=== PATIENT | female | born 1970 | race Caucasian/White ===

== ENCOUNTER 2019-01-19 16:20 | Emergency (ER) | payer MEDICAID ==
[~2019-01-19] VITALS: Ht 162.6 cm; Wt 76.6 kg
[~2019-01-19 16:20] MED LIST: LEVO25TA9 PO; RISPC375 IM
[2019-01-19] MEDS ORDERED: HydrOXYzine HCL 50 MG TABLET PO ONE (17:15)
[2019-01-19 17:21] LABS: BASOPHILS % (AUTO) 0.6 % (0.0-2.0); EOSINOPHILS % (AUTO) 1.3 % (1.0-6.0); HEMOGLOBIN 12.4 g/dL (12.0-16.0); LYMPHOCYTES # (AUTO) 3.3 K/uL (1.0-4.8); LYMPHOCYTES % (AUTO) 37.2 % (22.0-44.0); MEAN CORPUSCULAR HEMOGLOBIN 28.8 pg (26.0-34.0); MEAN CORPUSCULAR HGB CONC 32.7 G/dL (31.0-37.0); MEAN CORPUSCULAR VOLUME 88 fL (80-100); MONOCYTES # (AUTO) 0.5 K/uL (0.1-1.0); MONOCYTES % (AUTO) 5.4 % (2.0-9.0); NEUTROPHILS % (AUTO) 55.5 % (40.0-70.0); PLATELET COUNT (AUTO) 289 K/uL (150-450); RED BLOOD CELL COUNT(AUTO) 4.32 MIL/uL (4.00-5.20); RED CELL DISTRIBUTION WIDTH 14.1 % (11.5-14.5)
[2019-01-19 17:24] LABS: APPEARANCE,URINE CLEAR (CLEAR); BILIRUBIN,URINE NEGATIVE (NEGATIVE); GLUCOSE, URINE (UA) NEGATIVE (NEGATIVE); KETONES,URINE NEGATIVE (NEGATIVE); LEUKOCYTE ESTERASE ,URINE NEGATIVE (NEGATIVE); NITRATE,URINE NEGATIVE (NEGATIVE); OCCULT BLOOD,URINE LARGE (NEGATIVE); PH,URINE 5.5 (5.0-8.0); PROTEIN,URINE NEGATIVE (NEGATIVE); UROBILINOGEN,URINE 0.2 mg/dL (<=1.0)
[2019-01-19 17:32] LABS: AMPHET/METH SCREEN,URINE NEGATIVE (NEGATIVE); BARBITURATE SCREEN, URINE NEGATIVE (NEGATIVE); BENZODIAZEPINES SCREEN,URINE NEGATIVE (NEGATIVE); CANNABINOID SCREEN,URINE NEGATIVE (NEGATIVE); COCAINE SCREEN,URINE NEGATIVE (NEGATIVE); METHADONE SCREEN, URINE NEGATIVE (NEGATIVE); OPIATE SCREEN,URINE NEGATIVE (NEGATIVE)
[2019-01-19 17:33] LABS: PHENCYCLIDINE SCREEN,URINE NEGATIVE (NEGATIVE)
[2019-01-19 17:38] LABS: BACTERIA,URINE None Seen /HPF (None Seen); MUCUS,URINE Few LPF (None Seen); SQUAMOUS EPITHELIAL CELL,UR Few /LPF (None Seen); WBC,URINE None Seen /HPF (0-5)
[2019-01-19 17:44] LABS: ALANINE AMINOTRANSFERASE 26 U/L (12-78); ALBUMIN 3.6 g/dL (3.4-5.0); ALKALINE PHOSPHATASE 68 U/L (46-116); ANION GAP 5 mmol/L (8-16); ASPARTATE AMINOTRANSFERASE 17 U/L (15-37); BILIRUBIN,TOTAL 0.3 mg/dL (0.1-1.0); CALCIUM, TOTAL 9.5 mg/dL (8.8-10.5); CARBON DIOXIDE 29 mmol/L (22-29); CHLORIDE 105 mmol/L (98-107); CREATININE 0.87 mg/dL (0.60-1.30); GLOMERULAR FILTR. RATE CALC > 60 mL/min (>60); GLUCOSE,RANDOM 105 mg/dL (70-110); POTASSIUM 4.1 mmol/L (3.5-5.1); SODIUM SERUM 139 mmol/L (136-145); THYROID STIMULATING HORMONE 5.21 uIU/mL (0.36-3.74); TOTAL PROTEIN, SERUM 7.6 g/dL (6.4-8.2); UREA NITROGEN, BLOOD 16 mg/dL (7-18)
[2019-01-19 18:43] VITALS: BP 108/65
== END 2019-01-19 18:44 | disposition home or self-care (01) ==
LOC: EMS 17:17
DX: F41.9 Anxiety disorder, unspecified (principal); E03.9 Hypothyroidism, unspecified; R94.6 Abnormal results of thyroid function studies; F20.9 Schizophrenia, unspecified; Z79.899 Other long term (current) drug therapy
CPT/HCPCS: 36415; 80053; 80307; 81001; 84443; 84703; 85025; 93005; 99284; G0480

== ENCOUNTER 2020-09-11 22:21 | Emergency (ER) | payer MEDICAID ==
[~2020-09-11] VITALS: Ht 167.6 cm; Wt 77.3 kg
[2020-09-11] MEDS ORDERED: ONDANSETRON HCL 4 MG/2 ML VIAL IVP ONE (22:30)
[2020-09-11] MEDS ORDERED: MORPHINE SULFATE 2 MG/ML SYRINGE IVP ONE (22:30)
[2020-09-11] MEDS ORDERED: SODIUM CHLORIDE 0.9% 1,000 ML IV ONE (22:30)
[2020-09-11 22:45] LABS: BASOPHILS % (AUTO) 0.4 % (0.0-2.0); EOSINOPHILS % (AUTO) 0.1 % (1.0-6.0); HEMATOCRIT 39.7 % (36-46); HEMOGLOBIN 13.1 g/dL (12.0-16.0); LYMPHOCYTES # (AUTO) 1.9 K/uL (1.0-4.8); LYMPHOCYTES % (AUTO) 15.3 % (22.0-44.0); MEAN CORPUSCULAR HEMOGLOBIN 28.1 pg (26.0-34.0); MEAN CORPUSCULAR HGB CONC 32.9 G/dL (31.0-37.0); MEAN CORPUSCULAR VOLUME 85 fL (80-100); MONOCYTES # (AUTO) 0.5 K/uL (0.1-1.0); MONOCYTES % (AUTO) 4.1 % (2.0-9.0); NEUTROPHILS # (AUTO) 10.2 K/uL (1.8-7.7); NEUTROPHILS % (AUTO) 80.1 % (40.0-70.0); PLATELET COUNT (AUTO) 275 K/uL (150-450); RED BLOOD CELL COUNT(AUTO) 4.66 MIL/uL (4.00-5.20); RED CELL DISTRIBUTION WIDTH 15.3 % (11.5-14.5)
[2020-09-11] MEDS ORDERED: SODIUM CHLORIDE 0.9% 100 ML ONE (22:55)
[2020-09-11] MEDS ORDERED: IOHEXOL 350 MG/ML 100 ML VIAL ONE (22:55)
[2020-09-11 22:58] LABS: ANION GAP 9 mmol/L (8-16); CALCIUM, TOTAL 9.1 mg/dL (8.8-10.5); CARBON DIOXIDE 29 mmol/L (22-29); CHLORIDE 106 mmol/L (98-107); CREATININE 0.84 mg/dL (0.60-1.30); GLOMERULAR FILTR. RATE CALC > 60 mL/min (>60); GLUCOSE,RANDOM 115 mg/dL (70-110); POTASSIUM 4.1 mmol/L (3.5-5.1); SODIUM SERUM 144 mmol/L (136-145); UREA NITROGEN, BLOOD 14 mg/dL (7-18)
[2020-09-11 23:09] LABS: ALANINE AMINOTRANSFERASE 82 U/L (12-78); ALBUMIN 4.1 g/dL (3.4-5.0); ALKALINE PHOSPHATASE 69 U/L (46-116); ASPARTATE AMINOTRANSFERASE 86 U/L (15-37); BILIRUBIN,TOTAL 0.7 mg/dL (0.1-1.0); HCG,QUANTITATIVE 1 mIU/mL (0-6); TOTAL PROTEIN, SERUM 7.5 g/dL (6.4-8.2)
[2020-09-11 23:19] LABS: LACTIC ACID 1.2 mmol/L (0.4-2.0)
[2020-09-12 00:43] LABS: COVID AG,FIA SOURCE NASOPHARYNGEAL
[2020-09-12] MEDS ORDERED: HYDROmorphone 2 MG/ML VIAL IVP ONE (00:45)
[2020-09-12] MEDS ORDERED: ONDANSETRON HCL 4 MG/2 ML VIAL IVP ONE (00:45)
[2020-09-12 01:30] VITALS: BP 100/63
[2020-09-12] MEDS ORDERED: PERTUSS(ACELL),DIPH,TET VAC/PF 0.5 ML SYRINGE IM. ONE (02:00)
== END 2020-09-12 03:00 | disposition short-term general hospital (02) ==
LOC: EMS 22:21
DX: S01.512A Laceration without foreign body of oral cavity, initial encounter (principal); S22.068A Other fracture of T7-T8 thoracic vertebra, initial encounter for closed fracture; Z20.822 Contact with and (suspected) exposure to COVID-19; W19.XXXA Unspecified fall, initial encounter; Y93.89 Activity, other specified; Y92.89 Other specified places as the place of occurrence of the external cause; Y99.8 Other external cause status
CPT/HCPCS: 70450; 71045; 71260; 72125; 72170; 74177; 80053; 83605; 84702; 85025; 87426; 90471; 90715; 96374; 96375 ×2; 96376; 99291; A9575; J1170; J2270; J2405 ×2; J7030; J7050; 72193; 74160

== ENCOUNTER 2023-09-05 10:44 | Inpatient (IN) | payer MEDICAID ==
[~2023-09-05] VITALS: Ht 157.5 cm; Wt 73.0 kg
[2023-09-05 11:54] LABS: BASOPHILS % (AUTO) 0.6 % (0.0-2.0); EOSINOPHILS % (AUTO) 1.2 % (1.0-6.0); HEMATOCRIT 38.6 % (36-46); LYMPHOCYTES # (AUTO) 2.4 K/uL (1.0-4.8); LYMPHOCYTES % (AUTO) 30.2 % (22.0-44.0); MEAN CORPUSCULAR HEMOGLOBIN 29.1 pg (26.0-34.0); MEAN CORPUSCULAR HGB CONC 33.7 G/dL (31.0-37.0); MEAN CORPUSCULAR VOLUME 86 fL (80-100); MONOCYTES # (AUTO) 0.3 K/uL (0.1-1.0); MONOCYTES % (AUTO) 4.2 % (2.0-9.0); NEUTROPHILS # (AUTO) 5.2 K/uL (1.8-7.7); NEUTROPHILS % (AUTO) 63.8 % (40.0-70.0); PLATELET COUNT (AUTO) 273 K/uL (150-450); RED BLOOD CELL COUNT(AUTO) 4.47 MIL/uL (4.00-5.20); RED CELL DISTRIBUTION WIDTH 13.6 % (11.5-14.5); WHITE BLOOD COUNT (AUTO) 8.1 K/uL (4.5-11.0)
[2023-09-05 12:26] LABS: COVID AG,FIA SOURCE NASAL SWAB
[2023-09-05 12:36] LABS: ANION GAP 7 mmol/L (8-16); CALCIUM, TOTAL 9.2 mg/dL (8.8-10.5); CARBON DIOXIDE 28 mmol/L (22-29); CHLORIDE 107 mmol/L (98-107); CREATININE 0.82 mg/dL (0.60-1.30); GLOMERULAR FILTR. RATE CALC > 60 mL/min (>60); GLUCOSE,RANDOM 107 mg/dL (70-110); POTASSIUM 5.1 mmol/L (3.5-5.1); SODIUM SERUM 142 mmol/L (136-145); UREA NITROGEN, BLOOD 21 mg/dL (7-18)
[2023-09-05 12:42] LABS: ALANINE AMINOTRANSFERASE 35 U/L (12-78); ALBUMIN 3.8 g/dL (3.4-5.0); ALCOHOL, BLOOD (SERUM) < 3 mg/dL (0-10); ALKALINE PHOSPHATASE 83 U/L (46-116); ASPARTATE AMINOTRANSFERASE 20 U/L (15-37); BILIRUBIN,TOTAL 0.5 mg/dL (0.1-1.0)
[2023-09-05 12:46] LABS: SARS-COV2 (COVID) ANTIGEN,FIA Negative (Negative)
[2023-09-05] MEDS ORDERED: HALOPERIDOL 5 MG TABLET PO PRN (14:30)
[2023-09-05] MEDS ORDERED: LORazepam 2 MG TABLET PO PRN (14:30)
[2023-09-05] MEDS ORDERED: ZOLPIDEM TARTRATE 10 MG TABLET PO PRN (14:30)
[2023-09-05 14:32] LABS: PH,URINE DRUG SCREEN 5.5 (5.0-8.0)
[2023-09-05 14:39] LABS: AMPHET/METH SCREEN,URINE NEGATIVE (NEGATIVE); BARBITURATE SCREEN, URINE NEGATIVE (NEGATIVE); BENZODIAZEPINES SCREEN,URINE NEGATIVE (NEGATIVE); CANNABINOID SCREEN,URINE NEGATIVE (NEGATIVE); COCAINE SCREEN,URINE NEGATIVE (NEGATIVE); METHADONE SCREEN, URINE NEGATIVE (NEGATIVE); OPIATE SCREEN,URINE NEGATIVE (NEGATIVE); PHENCYCLIDINE SCREEN,URINE NEGATIVE (NEGATIVE)
[2023-09-05 14:51] LABS: ALCOHOL, URINE DRUG SCREEN NEGATIVE (NEGATIVE)
[2023-09-06] MEDS ORDERED: PETROLATUM,WHITE 28 GM JELLY TP PRN (06:00)
[2023-09-06] MEDS ORDERED: LOPERAMIDE HCL 2 MG CAPSULE PO PRN (06:00)
[2023-09-06] MEDS ORDERED: MAGNESIUM HYDROXIDE SUSPENSION 30 ML UDCUP PO PRN (06:00)
[2023-09-06] MEDS ORDERED: MAG HYDROX/ALUMINUM HYD/SIMETH ES 30 ML SUSPENSION UDCUP PO PRN (06:00)
[2023-09-06] MEDS ORDERED: ONDANSETRON HCL 4 MG TABLET PO PRN (06:00)
[2023-09-06] MEDS ORDERED: BACITRACIN 28 GM OINTMENT TP PRN (06:00)
[2023-09-06] MEDS ORDERED: ALBUTEROL SULFATE HFA 90 MCG/PUFF 8 GM INHALER IH PRN (06:00)
[2023-09-06] MEDS ORDERED: IBUPROFEN 600 MG TABLET PO PRN (06:00)
[2023-09-06] MEDS ORDERED: DOCUSATE SODIUM 100 MG CAPSULE PO PRN (06:00)
[2023-09-06] MEDS ORDERED: ACETAMINOPHEN 325 MG TABLET PO PRN (06:00)
[2023-09-06] MEDS ORDERED: CloNIDine HCL 0.1 MG TABLET PO PRN (06:00)
[2023-09-06] MEDS ORDERED: BENZOCAINE/MENTHOL LOZENGE PO PRN (06:00)
[2023-09-06] MEDS ORDERED: OMEPRAZOLE 20 MG CAPSULE PO PRN (06:00)
[2023-09-06] MEDS: LEVOTHYROXINE SODIUM 25 MCG TABLET PO SCH (06:17)
[2023-09-06 08:18] VITALS: BP 115/68; PULSE 80; RESP 16; TEMP 97.9; O2SAT 99
[2023-09-06] MEDS: RisperiDONE 2 MG TABLET PO SCH (13:33)
[2023-09-06 20:04] VITALS: BP 102/60; PULSE 112; RESP 18; TEMP 97.9; O2SAT 98
[2023-09-07 08:20] VITALS: BP 116/70; PULSE 92; RESP 18; TEMP 97.9; O2SAT 100
[2023-09-07 20:39] VITALS: BP 105/72; PULSE 87; RESP 19; TEMP 98.1; O2SAT 100
[2023-09-08 08:18] VITALS: BP 116/69; PULSE 74; RESP 16; TEMP 98; O2SAT 97
[2023-09-08 21:07] VITALS: BP 110/56; PULSE 104; RESP 18; TEMP 97; O2SAT 100
[2023-09-09 08:16] VITALS: BP 123/84; PULSE 86; RESP 16; TEMP 97.9; O2SAT 99
[2023-09-09] MEDS: RisperiDONE MICROSPHERES 50 MG/2 ML SYRINGE IM SCH (17:11)
[2023-09-09 21:20] VITALS: BP 115/79; PULSE 96; RESP 17; TEMP 97.5; O2SAT 100
[2023-09-10 08:13] VITALS: BP 101/68; PULSE 100; RESP 16; TEMP 98; O2SAT 99
[2023-09-10 20:34] VITALS: BP 106/62; PULSE 88; RESP 16; TEMP 97.7; O2SAT 99
[2023-09-11 08:21] VITALS: BP 109/70; PULSE 90; RESP 18; TEMP 98.3; O2SAT 100
== END 2023-09-11 16:59 | disposition home or self-care (01) | DRG 750 ==
LOC: EMS 10:44 → B3A 16:09
PROVIDERS: ADMIT Psychiatry & Neurology Psychiatry; ATTEND Psychiatry & Neurology Psychiatry
DX: F20.9 Schizophrenia, unspecified (principal); Z91.148 Patient's other noncompliance with medication regimen for other reason; E03.9 Hypothyroidism, unspecified; F32.A Depression, unspecified; F41.9 Anxiety disorder, unspecified; Z20.822 Contact with and (suspected) exposure to COVID-19; G47.00 Insomnia, unspecified; K59.00 Constipation, unspecified; Z79.899 Other long term (current) drug therapy
CPT/HCPCS: 80053; 80307; 84703; 85025; G0480; J2794

== ENCOUNTER 2024-07-17 13:29 | Inpatient (IN) | payer MEDICAID ==
[~2024-07-17] VITALS: Ht 157.5 cm; Wt 87.0 kg
[~2024-07-17 13:29] MED LIST changes: -RISPC375 IM
[2024-07-17] MEDS ORDERED: ZOLPIDEM TARTRATE 10 MG TABLET PO PRN (14:00)
[2024-07-17] MEDS ORDERED: LORazepam 2 MG TABLET PO PRN (14:00)
[2024-07-17] MEDS ORDERED: HALOPERIDOL 5 MG TABLET PO PRN (14:00)
[2024-07-17 14:19] LABS: BASOPHILS % (AUTO) 0.8 % (0.0-2.0); EOSINOPHILS % (AUTO) 1.5 % (1.0-6.0); HEMATOCRIT 38.6 % (36-46); HEMOGLOBIN 12.9 g/dL (12.0-16.0); LYMPHOCYTES # (AUTO) 3.3 K/uL (1.0-4.8); LYMPHOCYTES % (AUTO) 37.2 % (22.0-44.0); MEAN CORPUSCULAR HEMOGLOBIN 28.6 pg (26.0-34.0); MEAN CORPUSCULAR HGB CONC 33.5 G/dL (31.0-37.0); MEAN CORPUSCULAR VOLUME 85 fL (80-100); MONOCYTES # (AUTO) 0.3 K/uL (0.1-1.0); MONOCYTES % (AUTO) 3.7 % (2.0-9.0); NEUTROPHILS % (AUTO) 56.8 % (40.0-70.0); PLATELET COUNT (AUTO) 276 K/uL (150-450); RED BLOOD CELL COUNT(AUTO) 4.53 MIL/uL (4.00-5.20); RED CELL DISTRIBUTION WIDTH 14.4 % (11.5-14.5); WHITE BLOOD COUNT (AUTO) 8.8 K/uL (4.5-11.0)
[2024-07-17 14:37] LABS: ALCOHOL, BLOOD (SERUM) < 3 mg/dL (0-10)
[2024-07-17 14:40] LABS: COVID AG,FIA SOURCE NPH
[2024-07-17 14:43] LABS: CALCIUM, TOTAL 9.7 mg/dL (8.8-10.5); CARBON DIOXIDE 31 mmol/L (22-29); CREATININE 0.81 mg/dL (0.60-1.30); GLOMERULAR FILTR. RATE CALC > 60 mL/min (>60); GLUCOSE,RANDOM 137 mg/dL (70-110); THYROID STIMULATING HORMONE 46.08 uIU/mL (0.36-3.74); UREA NITROGEN, BLOOD 15 mg/dL (7-18)
[2024-07-17 15:08] LABS: SARS-COV2 (COVID) ANTIGEN,FIA Negative (Negative)
[2024-07-17 15:30] LABS: ANION GAP 5 mmol/L (8-16); CHLORIDE 105 mmol/L (98-107); POTASSIUM 4.5 mmol/L (3.5-5.1); SODIUM SERUM 141 mmol/L (136-145)
[2024-07-17] MEDS: LEVOTHYROXINE SODIUM 50 MCG TABLET PO ONE (16:06)
[2024-07-17 21:25] LABS: APPEARANCE,URINE CLEAR (CLEAR); BILIRUBIN,URINE NEGATIVE (NEGATIVE); COLOR,URINE COLORLESS (YELLOW); GLUCOSE, URINE (UA) NEGATIVE (NEGATIVE); KETONES,URINE NEGATIVE (NEGATIVE); LEUKOCYTE ESTERASE ,URINE NEGATIVE (NEGATIVE); NITRATE,URINE NEGATIVE (NEGATIVE); OCCULT BLOOD,URINE SMALL (NEGATIVE); PH,URINE 6.5 (5.0-8.0); PH,URINE DRUG SCREEN 6.5 (5.0-8.0); PROTEIN,URINE NEGATIVE (NEGATIVE); SPECIFIC GRAVITIY, URINE 1.009 (1.003-1.030); UROBILINOGEN,URINE <=1.0 mg/dL (<=1.0)
[2024-07-17 21:32] LABS: ALCOHOL, URINE DRUG SCREEN NEGATIVE (NEGATIVE); AMPHET/METH SCREEN,URINE NEGATIVE (NEGATIVE); BARBITURATE SCREEN, URINE NEGATIVE (NEGATIVE); BENZODIAZEPINES SCREEN,URINE NEGATIVE (NEGATIVE); CANNABINOID SCREEN,URINE NEGATIVE (NEGATIVE); COCAINE SCREEN,URINE NEGATIVE (NEGATIVE); METHADONE SCREEN, URINE NEGATIVE (NEGATIVE); OPIATE SCREEN,URINE NEGATIVE (NEGATIVE); PHENCYCLIDINE SCREEN,URINE NEGATIVE (NEGATIVE)
[2024-07-17 21:33] LABS: BACTERIA,URINE Few /HPF (None Seen); SQUAMOUS EPITHELIAL CELL,UR Few /LPF (None Seen); WBC,URINE 0-2 /HPF (0-5)
[2024-07-18 17:31] VITALS: BP 124/75; PULSE 85; RESP 18; TEMP 97.5; O2SAT 99
[2024-07-18 17:34] VITALS: BP 124/75; PULSE 85; RESP 18; TEMP 97.5; O2SAT 99
[2024-07-18] MEDS: INFLUENZA VIRUS VACCINE TVS (6MO+) 2024-25/PF 45 MCG/0.5 ML SYRINGE IM. ONE (18:00)
[2024-07-18 20:24] VITALS: BP 124/75; PULSE 85; RESP 18; TEMP 97.5; O2SAT 99
[2024-07-19] MEDS: LEVOTHYROXINE SODIUM 25 MCG TABLET PO SCH (06:30)
[2024-07-19] MEDS ORDERED: CloNIDine HCL 0.1 MG TABLET PO PRN (07:45)
[2024-07-19] MEDS ORDERED: DOCUSATE SODIUM 100 MG CAPSULE PO PRN (07:45)
[2024-07-19] MEDS ORDERED: PETROLATUM,WHITE 28 GM JELLY TP PRN (07:45)
[2024-07-19] MEDS ORDERED: ONDANSETRON 4 MG TABLET PO PRN (07:45)
[2024-07-19] MEDS ORDERED: LOPERAMIDE HCL 2 MG CAPSULE PO PRN (07:45)
[2024-07-19] MEDS ORDERED: ALBUTEROL SULFATE HFA 90 MCG/PUFF 8 GM INHALER IH PRN (07:45)
[2024-07-19] MEDS ORDERED: IBUPROFEN 400 MG TABLET PO PRN (07:45)
[2024-07-19] MEDS ORDERED: MAGNESIUM HYDROXIDE SUSPENSION 30 ML UDCUP PO PRN (07:45)
[2024-07-19] MEDS ORDERED: ACETAMINOPHEN 325 MG TABLET PO PRN (07:45)
[2024-07-19] MEDS ORDERED: NICOTINE 14 MG/24 HOUR PATCH TD PRN (07:45)
[2024-07-19] MEDS ORDERED: MAG HYDROX/ALUMINUM HYD/SIMETH ES 30 ML SUSPENSION UDCUP PO PRN (07:45)
[2024-07-19 08:33] VITALS: BP 106/62; PULSE 93; RESP 16; TEMP 97.9; O2SAT 98
[2024-07-19] MEDS: RisperiDONE 2 MG TABLET PO SCH (09:45)
[2024-07-19 19:58] VITALS: BP 101/62; PULSE 84; RESP 17; TEMP 98; O2SAT 97
[2024-07-20] MEDS: LEVOTHYROXINE SODIUM 25 MCG TABLET PO SCH (06:30)
[2024-07-20 08:17] VITALS: BP 109/62; PULSE 86; RESP 16; TEMP 96.9; O2SAT 98
[2024-07-20 08:29] LABS: HEMOGLOBIN A1C 5.7 % (3.8-5.6)
[2024-07-20 08:44] LABS: CHOL/HDL RATIO 3.2 (3.9-5.7); THYROID STIMULATING HORMONE 53.67 uIU/mL (0.36-3.74)
[2024-07-20 20:18] VITALS: BP 115/60; PULSE 82; RESP 18; TEMP 97.8
[2024-07-21 08:12] VITALS: BP 106/68; PULSE 93; RESP 16; TEMP 97.9; O2SAT 97
[2024-07-21 20:39] VITALS: RESP 16
[2024-07-22 09:41] VITALS: BP 109/69; PULSE 87; RESP 16; TEMP 97.3; O2SAT 98
[2024-07-22 22:23] VITALS: BP 109/67; PULSE 16; RESP 16; TEMP 97.7; O2SAT 98
[2024-07-23 08:19] VITALS: BP 126/82; PULSE 79; RESP 18; TEMP 97.9; O2SAT 97
[2024-07-23 20:20] VITALS: BP 103/63; PULSE 91; RESP 18; TEMP 97.6; O2SAT 98
[2024-07-24 08:23] VITALS: BP 110/62; PULSE 100; RESP 16; TEMP 96.8; O2SAT 96
[2024-07-24 20:18] VITALS: BP 123/64; PULSE 100; RESP 18; TEMP 97.5; O2SAT 99
[2024-07-25 08:37] VITALS: BP 100/60; PULSE 98; RESP 16; TEMP 96.9; O2SAT 96
[2024-07-25 20:25] VITALS: BP 115/64; PULSE 100; RESP 18; TEMP 97; O2SAT 97
[2024-07-26] MEDS: LEVOTHYROXINE SODIUM 50 MCG TABLET PO SCH (06:37)
[2024-07-26 08:12] VITALS: BP 109/70; PULSE 110; RESP 17; TEMP 98.9; O2SAT 99
[2024-07-26] MEDS: GuaiFENesin/D-METHORPHAN [SUGAR-FREE] 200-20MG/10 ML SYRUP UDCUP PO PRN (08:45)
[2024-07-26 20:00] VITALS: BP 103/58; PULSE 82; RESP 16; TEMP 98.2; O2SAT 98
[2024-07-27 09:00] VITALS: BP 102/66; PULSE 92; RESP 16; TEMP 98; O2SAT 98
[2024-07-27 10:31] LABS: GLUCOMETER DEV NAME(LOC) BV3S.; GLUCOSE,POINT OF CARE 97 MG/DL (70-110)
== END 2024-07-27 17:30 | disposition short-term general hospital (02) | DRG 750 ==
LOC: EMS 13:35 → B3A 07-18 15:35
PROVIDERS: ADMIT Psychiatry & Neurology Psychiatry; ATTEND Psychiatry & Neurology Psychiatry
PROC: GZHZZZZ Group Psychotherapy (ICD-10-PCS; principal; 2024-07-19)
PROC: GZ52ZZZ Individual Psychotherapy, Cognitive (ICD-10-PCS; 2024-07-19)
DX: F20.0 Paranoid schizophrenia (principal); R56.9 Unspecified convulsions; E03.9 Hypothyroidism, unspecified; E66.9 Obesity, unspecified; F41.9 Anxiety disorder, unspecified; G47.00 Insomnia, unspecified; Z79.899 Other long term (current) drug therapy; Z68.35 Body mass index [BMI] 35.0-35.9, adult; Z20.822 Contact with and (suspected) exposure to COVID-19
CPT/HCPCS: 70450; 80048; 80061; 80307; 81001; 82962; 83036; 84439; 84443; 85025; 90686; 99285; G0480